=== PATIENT | female | born 2000 | race Caucasian/White ===

== ENCOUNTER 2025-04-17 14:12 | Emergency (ER) | payer SELFPAY ==
--- NOTE | 2025-04-17 14:17 | USR_ITS ---
PROCEDURE INFORMATION: Exam: US , Transvaginal Exam date and time: 04/17/2025 3:26 PM Age: 24 years old Clinical indication: Screening exam; Routine US, uterus; Additional info: 9 wks; Spotting/cramping LABS AND CLINICAL REPORTS: Last menstrual period start date: 02/11/2025 Gestational age (Established): 9 w 2 d Estimated due date (Established): 11/18/2025 TECHNIQUE: Imaging protocol: Real-time transvaginal obstetrical ultrasound of the maternal pelvis with image documentation. Transvaginal imaging was used for better evaluation of the fetus, adnexa, and/or cervix. COMPARISON: No relevant prior studies available. FINDINGS: Gestation: Yolk sac measures 2.6 mm. Mean gestational sac diameter: 3.66 cm. EGA (MSD) is 9 w 0 d BIOMETRY: Peninsula rump length (CRL): Peninsula-rump length of the embryo is 1.51 cm corresponding to sonographic age of 7 weeks and 6 days. Positive embryonic cardiac activity with heart rate 171 bpm. MATERNAL: Cervix: Trace fluid is noted in the cervical canal. Intraperitoneal space: Ovaries were not visualized. No free fluid. US/US OB transvaginal [id number] IMPRESSION: 1. Single living intrauterine gestation with estimated sonographic age 7 weeks and 6 days based on crown-rump length. 2. Trace fluid in the cervical canal.
[2025-04-17 14:26] VITALS: BP 140/89; PULSE 71; RESP 20; TEMP 36.7; O2SAT 99
[2025-04-17 14:51] LABS: Hematocrit 49.1 % (36-47); Hemoglobin 15.90 g/dL (11.27-16.99); Mean Corpuscular HGB Conc 32.4 g/dL (30-55); Mean Corpuscular Hemoglobin 29.9 pg (27-33); Mean Corpuscular Volume 92.3 fl (85-98); Nucleated Red Blood Cells % 0 %; Platelet Count 358 10^3/cmm (157-399); Red Blood Count 5.32 10^6/uL (3.85-5.65); White Blood Count 11.62 10^3/uL (3.29-11.43)
[2025-04-17 15:25] LABS: Alanine Aminotransferase 31 U/L (0-33); Albumin Level 4.1 g/dL (3.5-5.2); Alkaline Phosphatase 68 U/L (35-105); Anion Gap 18.0 (5-19); Aspartate Amino Transferase 18 U/L (0-32); Blood Urea Nitrogen 8 mg/dL (6-20); Calcium 8.8 mg/dL (8.5-10.5); Carbon Dioxide 19 mmol/L (22-29); Chloride 104 mmol/L (98-107); Globulin 2.9 g/dL (1.3-4.6); Glucose 75 mg/dL (65-115); Osmolality Calculated 281 mOsm/kg (285-295); Potassium 4.0 mmol/L (3.5-5.1); Sodium 137 mmol/L (136-145); Total Protein 7.0 g/dL (6.6-8.7)
[2025-04-17 16:13] LABS: Glucose Urine UA Negative (Normal); Nitrate Urine Negative (Negative); Specific Gravity, Urine 1.018 (1.005-1.030)
[2025-04-17 16:23] LABS: Add Urine Microscopic? YES
[2025-04-17 16:44] LABS: UA Slide Review UA Slide Review Perf
--- NOTE | 2025-04-17 16:48 | W.ED.GENADLT ---
HPI - General Adult General: Chief complaint: General Medical Stated complaint: 9 weeks preg, abd pain, spotting, n/v Time Seen by Provider: 04/17/25 16:47 History of Present Illness: 24-year-old female who is approximately 9 weeks who presents emergency room with abdominal pain, spotting and nausea and vomiting. Nausea and vomiting has resolved. She had some cramping pelvic pain that was not localizing. No fever. No altered mental status. Mild spotting. Related Data Previous Rx's ?Medication ?Instructions ?Recorded cefdinir 300 mg capsule 300 mg PO BID 7 days #14 caps 04/17/25 Allergies Allergy/AdvReac Type Severity Reaction Status Date / Time No Known Allergies Allergy Verified 04/17/25 14:26 Review of Systems Narrative: Constitutional symptoms: Negative except as documented in HPI. Skin symptoms: Negative except as documented in HPI. Eye symptoms: Negative except as documented in HPI. ENMT symptoms: Negative except as documented in HPI. Respiratory symptoms: Negative except as documented in HPI. Cardiovascular symptoms: Negative except as documented in HPI. Gastrointestinal symptoms: Negative except as documented in HPI. Genitourinary symptoms: Negative except as documented in HPI. Musculoskeletal symptoms: Negative except as documented in HPI. Neurologic symptoms: Negative except as documented in HPI. Psychiatric symptoms: Negative except as documented in HPI. Endocrine symptoms: Negative except as documented in HPI. Physical Exam Narrative: EXAM NARRATIVE: General: Alert, no acute distress. Skin: Warm, dry. Head: Normocephalic, atraumatic. Neck: Supple, trachea midline. Eye: Extraocular movements are intact. Ears, nose, mouth and throat: mucosa moist. Cardiovascular: Regular, Normal peripheral perfusion. Respiratory: Lungs are clear to auscultation, respirations are non-labored, breath sounds are equal, Symmetrical chest wall expansion. Gastrointestinal: Soft, Nontender, Non distended Musculoskeletal: Normal ROM, no deformity. Neurological: Alert and oriented, No focal neurological deficit observed. Psychiatric: Cooperative, appropriate mood & affect. Course Vital Signs: Vital signs: Vital Signs Temperature 98.1 F 04/17/25 14:26 Pulse Rate 71 04/17/25 14:26 Respiratory Rate 20 H 04/17/25 14:26 Blood Pressure 140/89 04/17/25 14:26 Pulse Oximetry 99 04/17/25 14:26 [facility] - General Adult Medical Decision Making Medical decision making Patient's reason for coming to the emergency room: Cramping and bleeding in early Social determinants: Patient works at [email or web address]. I reviewed the patient's medical record. No previous visits to the emergency room. I reviewed the patient's current home meds Patient takes no chronic medications. Alternate historians: None Differential diagnosis: including but not limited to and based on the above HPI, review of systems and physical exam: Orders placed to evaluate differential diagnosis based on the above differential, HPI and physical exam Lab Review: Laboratory results were reviewed and interpreted by myself the emergency room physician. Mild leukocytosis. No anemia. No renal failure. Quant is 112,000 which is appropriate. She does have 1+ bacteria with 6-10 whites in her urine some going to treat her for urinary tract infection Ultrasound transvaginal: Single living intrauterine gestation with estimated sonographic age of 7 weeks and 6 days. Trace fluid in the cervical canal. This was reviewed and interpreted by myself the emergency room physician. I also reviewed the radiology report. Assessment of risk: Level of risk: Low risk patient. Hospitalization considerations: No consideration of hospitalization. Reexamination: Patient remained stable. No increased work of breathing. No altered mental status. No focal motor deficits. Consultation: I spoke with Dr. Painter with obstetrics he says at this age the patient does not require RhoGAM. Assessment and plan: Threatened miscarriage Urinary tract infection Rh- patient ?Home on antibiotics. - Discharged home - Discussed plan with patient. Answered any questions. - Evaluation and treatment of this problem were appropriate in the emergency setting. Lab Data 04/17/25 14:32 04/17/25 14:32 Radiology Impressions Transvaginal US 04/17/25 14:17 IMPRESSION: 1. Single living intrauterine gestation with estimated sonographic age 7 weeks and 6 days based on crown-rump length. 2. Trace fluid in the cervical canal. Laboratory Results WBC 11.62 10^3/uL (3.29-11.43) H 04/17/25 14:32 RBC 5.32 10^6/uL (3.85-5.65) 04/17/25 14:32 Hgb 15.90 g/dL (11.27-16.99) 04/17/25 14:32 Hct 49.1 % (36-47) H 04/17/25 14:32 MCV 92.3 fl (85-98) 04/17/25 14:32 MCH 29.9 pg (27-33) 04/17/25 14:32 MCHC 32.4 g/dL (30-55) 04/17/25 14:32 RDW 13.5 % (12.1-15.1) 04/17/25 14:32 Plt Count 358 10^3/cmm (157-399) 04/17/25 14:32 MPV 9.5 fL (7.4-10.4) 04/17/25 14:32 Neut % (Auto) 72.8 % 04/17/25 14:32 Lymph % (Auto) 16.9 % 04/17/25 14:32 [place] Zandt % (Auto) 7.8 % 04/17/25 14:32 Eos % (Auto) 1.8 % 04/17/25 14:32 Baso % (Auto) 0.4 % 04/17/25 14:32 Neut # (Auto) 8.45 10^3/uL (1.8-7.7) H 04/17/25 14:32 Lymph # (Auto) 2.0 10^3/uL (0.8-4.8) 04/17/25 14:32 [place]t # (Auto) 0.9 10^3/uL (0.2-0.9) 04/17/25 14:32 Eos # (Auto) 0.2 10^3/uL (0.0-0.8) 04/17/25 14:32 Baso # (Auto) 0.1 10^3/uL (0.0-0.1) 04/17/25 14:32 Nucleated RBC % (auto) 0 % 04/17/25 14:32 Nucleated RBCs # 0.0 /100WBC 04/17/25 14:32 Sodium 137 mmol/L (136-145) 04/17/25 14:32 Potassium 4.0 mmol/L (3.5-5.1) 04/17/25 14:32 Chloride 104 mmol/L (98-107) 04/17/25 14:32 Carbon Dioxide 19 mmol/L (22-29) L 04/17/25 14:32 Anion Gap 18.0 (5-19) 04/17/25 14:32 BUN 8 mg/dL (6-20) 04/17/25 14:32 Creatinine 0.5 mg/dL (0.5-0.9) 04/17/25 14:32 GFR Calculation 150.3 mL/min (90-130) H 04/17/25 14:32 Glucose 75 mg/dL (65-115) 04/17/25 14:32 Calculated Osmolality 281 mOsm/kg (285-295) L 04/17/25 14:32 Calcium 8.8 mg/dL (8.5-10.5) 04/17/25 14:32 Total Bilirubin 0.4 mg/dL (0.15-1.2) 04/17/25 14:32 AST 18 U/L (0-32) 04/17/25 14:32 ALT 31 U/L (0-33) 04/17/25 14:32 Alkaline Phosphatase 68 U/L (35-105) 04/17/25 14:32 Total Protein 7.0 g/dL (6.6-8.7) 04/17/25 14:32 Albumin 4.1 g/dL (3.5-5.2) 04/17/25 14:32 Globulin 2.9 g/dL (1.3-4.6) 04/17/25 14:32 Ser , Semi-Qnt 195807.00 mIU/mL 04/17/25 14:32 Urine Color Yellow (Yellow) 04/17/25 15:30 Urine Appearance Cloudy (CLEAR) A 04/17/25 15:30 Urine pH 7.0 (5-7) 04/17/25 15:30 Ur Specific Liberty 1.018 (1.005-1.030) 04/17/25 15:30 Urine Protein Negative (Negative) 04/17/25 15:30 Urine Glucose (UA) Negative (Normal) 04/17/25 15:30 Urine Ketones Negative (Negative) 04/17/25 15:30 Urine Blood 1+ (Negative) A 04/17/25 15:30 Urine Nitrate Negative (Negative) 04/17/25 15:30 Urine Bilirubin Negative (Negative) 04/17/25 15:30 Urine Urobilinogen 1.0 mg/dL (Negative) 04/17/25 15:30 Ur Leukocyte Esterase Negative (Negative) 04/17/25 15:30 Urine RBC 0-2 /hpf (0-2) 04/17/25 15:30 Urine WBC 6-10 /hpf (0-5) 04/17/25 15:30 Ur Squamous Epith Cells 6-10 /hpf (0-5) 04/17/25 15:30 Amorphous Sediment Not Reportable 04/17/25 15:30 Urine Bacteria 1+ /hpf (NONE) H 04/17/25 15:30 Hyaline Casts 0-4 /lpf H 04/17/25 15:30 Blood Type A Negative 04/17/25 14:32 Rho(D) Type Rh negative 04/17/25 14:32 All radiology interpretation(s) finalized by discharge Discharge Plan Discharge Patient Disposition: Home Clinical Impression: Vaginal bleeding affecting early , Urinary tract infection Condition: Stable Prescriptions: New cefdinir 300 mg capsule 300 mg PO BID 7 Days Qty: 14 0RF Discharge Orders: Discharge ED (Routine); Ordered 04/17/25 Ordered By: Dianelys Luther Discharge Diet: Usual diet Discharge Activity: Increase activity as tolerated Patient Instructions: Threatened Miscarriage (ED), Opioid Safety, Pain Management, Patient Portal & Oniel Instructions Activity Restrictions/Additional Instructions: Thank you for choosing [facility] for your healthcare needs today. You have been screened and evaluated and felt safe for discharge. Health conditions do change or evolve sometimes and as such it is important that you follow up with your Primary Doctor to be re checked, 3-5 days is a general good time frame for follow up. You are always welcome to return to the ED for re assessment if your symptoms are worsening or you have new concerns Print Language: Yakut Coding Level of Care Code ED Blending Kettle Tender for Willi Yi
== END 2025-04-17 18:15 | disposition home or self-care (01) ==
PROVIDERS: Physician Assistant; Emergency Provider Emergency Medicine
DX: O20.9 Hemorrhage in early pregnancy, unspecified (principal); Z3A.09 9 weeks gestation of pregnancy; O23.41 Unspecified infection of urinary tract in pregnancy, first trimester; N39.0 Urinary tract infection, site not specified
CPT/HCPCS: 36415; 76817; 80053; 81001; 84702; 85025; 86900; 99284

== ENCOUNTER → 2025-05-08 15:56 | Outpatient (BNVA) | payer MEDICAID, SELFPAY | PROVIDERS: Visit Provider Nurse Practitioner Family | DX: J02.9 Acute pharyngitis, unspecified (principal) | CPT/HCPCS: 87071; 87880 ==

== ENCOUNTER 2025-05-16 18:40 | Emergency (ER) | payer MEDICAID, SELFPAY ==
[2025-05-16 18:46] VITALS: BP 160/87; PULSE 74; RESP 18; TEMP 36.6; O2SAT 100; BMI 43.8
[2025-05-16 18:50] VITALS: BP 160/118; PULSE 69; RESP 18; O2SAT 99
--- NOTE | 2025-05-16 18:54 | W.ED.FALL ---
HPI - Fall General: Chief Complaint: Fall Stated Complaint: Fell down stairs, 13 wks preg, just hurt knees Time Seen by Provider: 05/16/25 18:49 History of Present Illness: 25-year-old female who is approximately 14 weeks who fell down earlier today. She hurt her knees bilaterally. No other injuries. No abdominal pain. No vaginal bleeding. Father was concerned about the baby so he brought her in. She had no abdominal injury. She is walking fine on her knees. Has some small abrasions. Does not want x-rays. Related Data Home Medications ?Medication ?Instructions ?Recorded ?Confirmed prenat.vits,sim,[id number] tab PO 05/08/25 05/08/25 Allergies Allergy/AdvReac Type Severity Reaction Status Date / Time No Known Allergies Allergy Verified 05/16/25 18:49 Review of Systems Narrative: Constitutional symptoms: Negative except as documented in HPI. Skin symptoms: Negative except as documented in HPI. Eye symptoms: Negative except as documented in HPI. ENMT symptoms: Negative except as documented in HPI. Respiratory symptoms: Negative except as documented in HPI. Cardiovascular symptoms: Negative except as documented in HPI. Gastrointestinal symptoms: Negative except as documented in HPI. Genitourinary symptoms: Negative except as documented in HPI. Musculoskeletal symptoms: Negative except as documented in HPI. Neurologic symptoms: Negative except as documented in HPI. Psychiatric symptoms: Negative except as documented in HPI. Endocrine symptoms: Negative except as documented in HPI. PFS ED PFSH: Social History Smoking and tobacco/nicotine status: current every day tobacco/nicotine user (quit 3 days ago) cigarettes Years cigarettes smoked: 10 Alcohol intake: never Substance/Drug Use: never Adopted: No Caregiver/support person: No Lives independently: Yes Household members: significant other Housing: Apartment Marital status: Single Number of children: 0 Highest education level completed: High School Graduate service: No Current occupational status: employed Physical Exam Narrative: EXAM NARRATIVE: General: Alert, no acute distress. Skin: Warm, dry. Head: Normocephalic, atraumatic. Neck: Supple, trachea midline. Eye: Extraocular movements are intact. Ears, nose, mouth and throat: mucosa moist. Cardiovascular: Regular, Normal peripheral perfusion. Respiratory: Lungs are clear to auscultation, respirations are non-labored, breath sounds are equal, Symmetrical chest wall expansion. Gastrointestinal: Soft, Nontender, Non distended Musculoskeletal: Normal ROM, no deformity. Abrasions to the knees bilaterally Neurological: Alert and oriented, No focal neurological deficit observed. Psychiatric: Cooperative, appropriate mood & affect. Course Vital Signs: Vital signs: Vital Signs Temperature 97.8 F 05/16/25 18:46 Pulse Rate 69 05/16/25 18:50 Respiratory Rate 18 05/16/25 18:50 Blood Pressure 160/118 05/16/25 18:50 Pulse Oximetry 99 05/16/25 18:50 Oxygen Delivery Me thod Room Air 05/16/25 18:50 MDM - Fall Medical Decision Making Medical decision making Patient's reason for coming to the emergency room: Fall, Social determinants: Patient is employed I reviewed the patient's medical record. I saw the patient early in and an ultrasound was done that showed a normal at that time. I reviewed the patient's current home meds No chronic medications Alternate historians: None Differential diagnosis: including but not limited to and based on the above HPI, review of systems and physical exam: It is very unlikely that she has injury to the fetus or placenta. She has had no trauma to the abdomen. She is having no abdominal pain. No cramping. No vaginal bleeding. Bedside ultrasound showed heart tone of around 160. Baby is moving and appears normal. We discussed that without any trauma to her abdomen and with a normal bedside ultrasound she likely does not need a formal transvaginal ultrasound today. Assessment and plan: Fall Knee pain - Discharged home - Discussed plan with patient. Answered any questions. - Evaluation and treatment of this problem were appropriate in the emergency setting. No radiology studies performed this visit Discharge Plan Discharge Patient Disposition: Home Clinical Impression: Fall, Acute knee pain, Condition: Stable Prescriptions: No Action prenat.vits,sim,[id number] Tablet PO Discharge Orders: Discharge ED (Routine); Ordered 05/16/25 Ordered By: Dianelys Luther Referrals: Shameka Marshall DO [Primary Care Provider, Emergency Medicine] Patient Instructions: P.R.I.C.E. Treatment (ED), Fall Prevention (ED), Opioid Safety, Pain Management, Patient Portal & Oniel Instructions Activity Restrictions/Additional Instructions: Thank you for choosing [facility] for your healthcare needs today. You have been screened and evaluated and felt safe for discharge. Health conditions do change or evolve sometimes and as such it is important that you follow up with your Primary Doctor to be re checked, 3-5 days is a general good time frame for follow up. You are always welcome to return to the ED for re assessment if your symptoms are worsening or you have new concerns. (Please note that included in your discharge packet is information concerning opioid safety and pain management. This information is given to all patients who are discharged from the ER regardless of their discharge diagnosis or the medicines they usually take or are prescribed.) Print Language: Albanian Coding Level of Care Code ED Business Planner for Willi Yi
[2025-05-16 19:56] VITALS: BP 149/107; PULSE 76; O2SAT 96
== END 2025-05-16 19:50 | disposition home or self-care (01) ==
PROVIDERS: Emergency Provider Emergency Medicine; PCP Emergency Medicine
DX: O26.891 Other specified pregnancy related conditions, first trimester (principal); Z3A.13 13 weeks gestation of pregnancy; M25.562 Pain in left knee; M25.561 Pain in right knee; F17.210 Nicotine dependence, cigarettes, uncomplicated
CPT/HCPCS: 99283